=== PATIENT | male | born 1975 | race Caucasian/White ===

== ENCOUNTER 2021-05-27 12:16 | Emergency (ER) | payer OTHER, SELFPAY ==
--- NOTE | ~2021-05-27 | XR_ITS ---
EXAMINATION: XR chest 2V EXAM DATE: 05/27/2021 15:02 INDICATION: Chest Pain. TECHNIQUE: Frontal and lateral projections of the chest obtained and reviewed. There is no prior pedro pablo dy for comparison. FINDINGS: The lungs are clear. There are no pleural effusions. The cardiomediastinal silhouette is within normal limits. There is no pneumothorax suspected. The bones and soft tissues are unremarkab le. IMPRESSION: Normal chest x-ray exam. Reviewed, dictated and finalized at location [facility] IMPRESSION: Normal chest x-ray exam.
[2021-05-27 12:26] VITALS: BP 139/89; PULSE 66; RESP 20; TEMP 36.9; O2SAT 98
--- NOTE | 2021-05-27 13:45 | ED.GENADULT ---
HPI - General Adult General Chief complaint: Neck Pain/Injury Stated complaint: odd feeling chest pain with neck pain Source: patient Mode of arrival: ambulatory Limitations: no limitations History of Present Illness HPI narrative: Patient presents for evaluation of neck pain and chest pain. He indicates that he was experiencing pain in the left trapezius about 13 to 14 months ago. He went to [facility] where he had EKG, labs, and chest x-ray performed. It sounds like he was discharged from the emergency department. His mother in March 2021. She had underlying coronary artery disease. He has continued to experience pain in the left trapezius and radiating into the left chest since that time on an intermittent basis. Pain seems positionally related. He often experiences pain after sleeping in certain positions. He states he has had intermittent sternal chest pain. He initially informed me that the pain started today but later indicates that he has had that pain intermittently for the last 13 to 14 months, although worse in the last week and even worse as of today. He cannot provide me with a descriptive quality of the pain in the left trapezius but states that it radiates into the left side of his chest. Pain also does radiate down his left upper extremity. Pain in the sternal region is described as tightness, without numerical rating. He has some new onset pain in his jaw and bilateral cervical lymph nodes within the last week. He thought that the symptoms in his sternum may be related to cold symptoms . He had some sinus congestion that started about a week ago. He contradicts himself throughout exam, stating that he has experienced a productive cough of green sputum over the last week later indicating that he has not had any cough present. No fever, chills, nausea, vomiting, loss of sense of taste or smell. He has received vaccination for COVID. He states he has an underlying hx of hypertension but is not on any antihypertensive medications. No underlying hx of hyperlipidemia or DM. He smokes about 8 cigarettes per day. Denies ETOH use. Denies illicit drugs. Related Data Allergies Allergy/AdvReac Type Severity Reaction Status Date / Time No Known Allergies Allergy Verified 05/27/21 13:16 Review of Systems Review of Systems: CONSTITUTIONAL: Denies fever, chills, or sweats. EYES: Denies visual changes, redness, or discharge. ENT: Reports neck pain. Reports sinus congestion. Denies congestion, sore throat, or otalgia. CARDIOVASCULAR: Denies chest pain, palpitations, or edema. RESPIRATORY: Denies cough or dyspnea. GASTROINTESTINAL: Denies abdominal pain, nausea, vomiting, or diarrhea. GENITOURINARY: Denies dysuria or hematuria. SKIN: Denies rash or itching. MUSCULOSKELETAL: Reports pain in left trapezius and scapula radiating into the left side of his chest and down LUE NEUROLOGIC: Denies headache, numbness, dizziness, or weakness. PSYCHIATRIC: Denies anxiety or depression. PMFSH Past Medical History Medical History Hypertension Tobacco use Surgical History Surgical History No pertinent past surgical history Family History Family History Mother Heart disease Social History Social History (Updated 05/27/21 @ 13:52 by VANESSA Quigley, ) Smoking packs per day: 0.6 Smoking cigarettes per day: 12.0 Smoking status: Current every day smoker Substance use: never Living arrangements: with family Gender identity (if verbalized by the patient): Male Sexual Orientation (if Verbalized by the Patient): Straight or Heterosexual Spiritual care concerns: No Exam Narrative: GENERAL: Well-appearing, well-nourished, and in no acute distress. HEAD: Normocephalic, atraumatic. EYES: PERRLA and EOMI. ENT: Nares clear, no rhinorrhea or epistaxis. Mucous mem
--- NOTE | 2021-05-27 13:59 | ECG_ITS ---
Measurements Intervals [place] Rate: 55 P: 30 NE: 129 QRS: 6 QRSD: 98 T: 6 QT: 395 QTc: 378 Interpretive Statements SINUS BRADYCARDIA BORDERLINE ECG Electronically Signed On 05-27-2021 14:13:04 CERTIFIED DENTAL ASSISTANT by Khurram Long D.O.
== END 2021-05-27 15:43 | disposition home or self-care (01) ==
PROVIDERS: Emergency Provider Nurse Practitioner; PCP Family Medicine
DX: F43.9 Reaction to severe stress, unspecified (principal); M54.2 Cervicalgia; R07.9 Chest pain, unspecified; Z20.822 Contact with and (suspected) exposure to COVID-19; F17.210 Nicotine dependence, cigarettes, uncomplicated; I10 Essential (primary) hypertension
CPT/HCPCS: 71046; 87426; 93005; 99213; C9803; G0463